=== PATIENT | female | born 1990 | race Caucasian/White ===

== ENCOUNTER 2016-08-26 10:34 | Emergency (ER) | payer OTHER ==
[~2016-08-26] VITALS: Ht 162.6 cm; Wt 65.9 kg
[~2016-08-26 10:34] MED LIST: DEPOPROVERA; VENL150C98 PO
[2016-08-26 10:39] VITALS: BP 133/96; PULSE 79; RESP 15; O2SAT 98
--- NOTE | 2016-08-26 11:03 | ED.REPORT ---
HPI-NVD Date of Service Aug 26, 2016 ED Provider: Olivia Guevara History of Present Illness: nausea diarrhea, vomiting off and on , fevers off and on. no primary care. ongoing for 4 weeks. given medications yesterday at [facility] with a bladder infection, denies s/s of such. taking depo. no coughing. feels weak tired.work at [employer], may lose job because of so many days missed, no blood in diarrhea, cyclic diarrhea, slight diarrhea today, took zofran today no relief from nausea trouble keeping food and liqueds down Nursing Notes Chief Complaint: FLU/Cold Symptoms Nursing Notes Reviewed: Yes Allergies: Coded Allergies: Sulfa (Sulfonamide Antibiotics) (Verified Allergy, Unknown, 07/12/14) Scheduled ([Depoprovera]) q 3 mos. Venlafaxine ER (Venlafaxine ER) 150 Mg Cap.er.24h 150 MG PO DAILY General Time Seen by MD: 11:01 Chief Complaint Nausea, Vomiting, Diarrhea, Other (crampiong abd pain) Hx Obtained From: Patient Onset Occurred: More than a week ago... (4 weeks) Symptom Duration: Intermittent Past Medical History Past Medical History Reports: Asthma Past Surgical History Reports: Inguinal hernia repair Smoking History Never Smoker Social History Alcohol Use: Denies alcohol use Drug Use: Denies drug use Occupation lives with friend and working at a [employer], taking lots of sports pictures 08/26/2016 Ambulatory Status Independent Review of Systems Basic Review of Systems Eyes: Vision NL, No discharge Respiratory: No shortness of breath, No cough, No wheeze Cardiovascular: No chest pain, No dyspnea on exertion, No orthopnea, No parox noct dyspnea, No palpitations : No dysuria, No frequency Musculoskeletal: No extremity swelling, No extremity pain, Full range of motion , Joints NL Hematologic: No bleeding, No bruising Endocrine: No cold intolerance, No heat intolerance, No weight gain, No weight loss Allergy / Immune: No allergy Psychiatric: Normal thought content Physical Exam Initial Vital Signs Vital Signs (First) Date Time Temp Pulse Resp B/P Pulse Ox O2 Delivery O2 Flow Rate FiO2 08/26/16 10:39 37.2 79 15 133/96 98 Room Air Initial VS: Reviewed, Vital signs normal Head / Eyes: Atraumatic, Normocephalic, PERRL ENT: Mucous membranes moist, Conjunctiva normal, No scleral icterus Neck: Supple, Non-tender, Full range of motion Respiratory: Breath sounds normal, Clear to auscultation, No respiratory distress Cardiovascular: Regular rate & rhythm, Heart sounds normal, Intact distal pulses Back: No CVA tenderness Lymphatic: No lymphadenopathy Extremities: Vascular intact, Neuro intact, No swelling, No tenderness Skin: Warm, Dry, No cyanosis Neurologic: Alert, Oriented, Nonfocal Psychiatric: Mood/affect normal, Behavior normal, Normal thought content General/Constitutional: Awake, Alert, No acute distress, Well appearing, Well developed, Well hydrated Abdomen: Atraumatic, Soft, Non-tender, McBurney's non-tender, No guarding, No rebound, BS normoactive ENT: Atraumatic, Airway patent, Mucous membranes moist, Pharynx NL, No peritonsillar abscess Respiratory / Chest: Atraumatic, Breath sounds NL, Breath sounds = bilat, No respiratory distress Cardiovascular: Heart rate NL, Regular rhythm, Heart sounds NL, No gallop Interpretation & Diagnostics Interpretation & Diagnostics: iver: Liver is normal in size and homogeneous in echotexture. Gallbladder: There are normal gallbladder Biliary ducts: Intrahepatic bile ducts are non-dilated. Extrahepatic bile duct caliber measures 2.5 mm. Normal is 6-7 mm or less in diameter, or 10 mm or less post-cholecystectomy. Pancreas: Visualized portions of the pancreas are sonographically normal. Spleen: Spleen is normal in size and homogeneous in echotexture. Kidneys: Kidneys are normal in size and echotexture. Right kidney measures 12.0 cm long; left kidney measures 10.3 cm long. No nephrolithiasis. No solid masses. Mild right pelviectasis. Aorta: Visualized aorta is normal in caliber at less than 3 cm. Iliacs: Proximal common iliac arteries are normal in caliber at less than 2.5 cm. IVC: Intrahepatic inferior vena cava is patent. Miscellaneous: No free abdominal fluid. IMPRESSION: 1. Mild pelviectasis in right kidney. No renal calculi. 2. Otherwise normal exam. Dictated by: Arnaud Martinez M.D. on 08/26/2016 at 13:58 Approved by: Arnaud Martinez M.D. on 08/26/2016 at 14:01 Lab Results Interpretation Result Diagram: 08/26/16 1135 08/26/16 1135 Test 08/26/16 11:14 08/26/16 11:35 08/26/16 14:15 Hold Urine Received (Received) White Blood Count 5.6th/mm3 (3.8-10.1) Red Blood Count 5.16mil/mm3 (3.90-5.20) Hemoglobin 15.4g/dL (12.0-15.6) Hematocrit 43.4% (35.0-46.0) Mean Corpuscular Volume 84.1fL (81-100) Mean Corpuscular Hemoglobin 29.8pg (27.0-35.0) Mean Corpuscular Hemoglobin Concent 35.5% (32.0-37.0) Red Cell Distribution Width 12.5% (12.3-15.4) Platelet Count 199bil/L (150-400) Neutrophils (%) (Auto) 47.1% (40-74) Lymphocytes (%) (Auto) 38.2% (14-46) Monocytes (%) (Auto) 7.9% (4-12) Eosinophils (%) (Auto) 5.9% (0-5) Basophils (%) (Auto) 0.7% (0-3) Sodium Level 138mEq/L (134-144) Potassium Level 3.7mEq/L (3.5-5.2) Chloride Level 102mEq/L (97-108) Carbon Dioxide Level 23mmol/L (18-29) Blood Urea Nitrogen 12mg/dL (6-20) Creatinine 0.55mg/dL (0.57-1.00) Estimat Glomerular Filtration Rate 193mL/min (>59) Glucose Level 91mg/dL (60-99) Calcium Level 9.6mg/dL (8.5-10.1) Total Bilirubin 1.7mg/dL (0.0-1.2) Aspartate Amino Transf (AST/SGOT) 11U/L (0-50) Alanine Aminotransferase (ALT/SGPT) 8U/L (0-32) Alkaline Phosphatase 47U/L (25-150) Total Protein 7.6g/dL (6.4-8.4) Albumin 4.6g/dL (3.4-5.0) Amylase Level 42U/L (28-100) Lipase 22U/L (13-60) Urine Color Yellow (YELLOW) Urine Appearance Clear (CLEAR,HAZY) Urine pH 7.0 (5.0-8.0) Urine Specific [place] 1.015 (1.003-1.035) Urine Protein Negativemg/dL (NEG,TRACE) Urine Glucose (UA) Negativemg/dL (NEGATIVE) Urine Ketones Negativemg/dL (NEGATIVE) Urine Occult Blood Negative (NEGATIVE) Urine Nitrite Negative (NEGATIVE) Urine Bilirubin Negative (NEGATIVE) Urine Urobilinogen Normalmg/dL (NORMAL) Urine Leukocyte Esterase Negative (NEGATIVE) Urine RBC 0-2/hpf (0-2) Urine WBC 0-5/hpf (0-5) Urine Epithelial Cells Few/hpf (NONE-MOD) Urine Crystals None seen (NONE SEEN) Urine Bacteria Few/hpf (NONE-FEW) Urine Hyaline Casts None/lpf (NONE) Urine Granular Casts None seen (NONE SEEN) Urine Waxy Casts None seen (NONE SEEN) Urine Red Blood Cell Casts None seen (NONE SEEN) Urine White Blood Cell Casts None seen (NONE SEEN) Urine Mucus Present (None Seen) Urine Trichomonas None seen (NONE SEEN) Urine Yeast None (NONE SEEN) Urinalysis Comment None Urine Culture Reflexed Not indicated X-Ray Abdominal Interpretation ECHNIQUE: One view of the abdomen acquired. COMPARISON: None. FINDINGS: Surgical changes and devices: None. Bowel: Bowel gas pattern is normal. Soft tissues: No suspicious abdominal calcifications. Visualized solid organ contours appear normal in size. Bones: No suspicious bony lesions. IMPRESSION: No acute process. Re-Eval/Medical Decision Med Decision/Clinical Course patient reporting decrease in nausea and pain has resolved. still with fatigue. patient unable to provide stool sample Discharge & Departure Impression: Primary Impression: Diarrhea Additional Impression: Nausea Disposition: Home Patient Instructions: Acute Nausea and Vomiting (ED), Chronic Diarrhea (ED), High Fiber Diet (ED) Additional Instructions: The labs are normal. The urine is normal. The ultrasound looks good. The x-ray is normal. The reglan did help with the nausea . A stool sample would be helpful to see why the diarrhea continues to be ongoing. Start a high fiber diet. You need to follow up in a week or so for a recheck. Please follow with primary care for a recheck. Referrals: Cedrick,Liane KENNEDY (PCP) EDSupervising Provider for APC: Robb Rock MD copies to: Liane Philip Sue ARNP Aug 26, 2016 11:02
[2016-08-26] MEDS ORDERED: 0.9% Sodium Chloride 1,000 ML IV ONE (11:20)
[2016-08-26] MEDS ORDERED: MetoCLOpramide 5 mg/mL 2 mL Inj IVPUSH ONE (11:20)
[2016-08-26 11:38] LABS: BASOPHILS % (AUTO) 0.7 % (0-3); EOSINOPHILS % (AUTO) 5.9 % (0-5); MONOCYTES % (AUTO) 7.9 % (4-12); Mean Corpuscular Hemoglobin 29.8 pg (27.0-35.0); Mean Corpuscular Volume 84.1 fL (81-100); NEUTROPHILS % (AUTO) 47.1 % (40-74); Platelet Count 199 bil/L (150-400)
--- NOTE | 2016-08-26 11:59 | DRSVH ---
PROCEDURE: X-RAY KUB ([id number]) INDICATIONS: abp pain TECHNIQUE: One view of the abdomen acquired. COMPARISON: None. FINDINGS: Surgical changes and devices: None. Bowel: Bowel gas pattern is normal. Soft tissues: No suspicious abdominal calcifications. Visualized solid organ contours appear normal in size. Bones: No suspicious bony lesions. IMPRESSION: No acute process. Dictated by: Carina Nair M.D. on 08/26/2016 at 11:57 Approved by: Carina Nair M.D. on 08/26/2016 at 11:57
--- NOTE | 2016-08-26 14:03 | DRSVH ---
PROCEDURE: US ABDOMEN ([id number]) INDICATIONS: Abdominal pain and nausea. TECHNIQUE: Real-time scanning was performed of the abdominal and retroperitoneal organs, with image documentatio n. COMPARISON: CT, ABD/PELVIS W/CON (PNL), 02/01/2010, 17:05. [facility], US, ABDOMEN SONO GRAM, 01/22/2010, 14:48. [facility], CT, KUB - CT ([facility]), 11/15/2012, 10:52. FINDINGS: Liver: Liver is normal in size and homogeneous in echotexture. Gallbladder: There are normal gallbladder Biliary ducts: Intrahepatic bile ducts are non-dilated. Extrahepatic bile duct caliber measures 2.5 mm. Normal is 6-7 mm or less in diameter, or 10 mm or less post-cholecystectomy. Pancreas: Visualized portions of the pancreas are sonographically normal. Spleen: Spleen is normal in size and homogeneous in echotexture. Kidneys: Kidneys are normal in size and echotexture. Right kidney measures 12.0 cm long; left kidne y measures 10.3 cm long. No nephrolithiasis. No solid masses. Mild right pelviectasis. Aorta: Visualized aorta is normal in caliber at less than 3 cm. Iliacs: Proximal common iliac arteries are normal in caliber at less than 2.5 cm. IVC: Intrahepatic inferior vena cava is patent. Miscellaneous: No free abdominal fluid. IMPRESSION: 1. Mild pelviectasis in right kidney. No renal calculi. 2. Otherwise normal exam. Dictated by: rAnaud Martinez M.D. on 08/26/2016 at 13:58 Approved by: Arnaud Martinez M.D. on 08/26/2016 at 14:01
[2016-08-26 14:32] LABS: APPEARANCE,URINE CLEAR (CLEAR,HAZY); COLOR,URINE YELLOW (YELLOW); OCCULT BLOOD,URINE NEGATIVE (NEGATIVE); UROBILINOGEN,URINE NORMAL (NORMAL)
== END 2016-08-26 14:13 | disposition home or self-care (01) ==
LOC: SED 10:34
DX: R19.7 Diarrhea, unspecified (principal); R11.2 Nausea with vomiting, unspecified; R50.9 Fever, unspecified; R53.1 Weakness; J45.909 Unspecified asthma, uncomplicated; Z88.2 Allergy status to sulfonamides
CPT/HCPCS: 36415; 74000; 76700; 80053; 81000; 81025; 82150; 83690; 85025; 96361; 96374; 96375; 99285; J2765; J7030

== ENCOUNTER 2017-02-19 16:56 | Emergency (ER) | payer OTHER ==
[~2017-02-19] VITALS: Ht 162.6 cm; Wt 68.2 kg
[2017-02-19 16:59] VITALS: BP 151/104; PULSE 85; RESP 16; O2SAT 100
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
[2017-02-19 18:47] LABS: BASOPHILS % (AUTO) 0.2 % (0-3); EOSINOPHILS % (AUTO) 5.9 % (0-5); MONOCYTES % (AUTO) 6.5 % (4-12); Mean Corpuscular Hemoglobin 30.1 pg (27.0-35.0); Mean Corpuscular Volume 83.9 fL (81-100); NEUTROPHILS % (AUTO) 58.2 % (40-74); Platelet Count 262 bil/L (150-400)
[2017-02-19] MEDS ORDERED: Promethazine Inj 25 MG in Dextrose 5%-Pha MIX 50 ML IV ONE (19:40)
[2017-02-19] MEDS ORDERED: 0.9% Sodium Chloride 1,000 ML IV ONE ×4 (19:40→22:05)
--- NOTE | 2017-02-19 20:25 | DRSVH ---
PROCEDURE: CT ABDOMEN AND PELVIS WITH CONTRAST ([id number]) INDICATIONS: R ABD pain TECHNIQUE: After the administration of intravenous contrast, 5 mm thick sections acquired from the diaphragm to the symphysis. 5 mm coronal and sagittal reformats were acquired. For radiation dose reduction, the following was used: automated exposure control, adjustment of mA and/or kV according to patient siz e. COMPARISON: [facility], CT, ABD/PELVIS W/CON ([facility] 02/01/2010, 17:05. [facility] CT ([facility]), 11/15/2012, 10:52. FINDINGS: Image quality: Excellent. ABDOMEN: Lung bases: Lung bases are clear. Heart size is normal. Solid organs: Liver and spleen are normal in size and enhancement. Gallbladder is within normal browne its. Biliary system is non dilated. Pancreas enhances normally. No adrenal nodules. Kidneys demon strate normal size and enhancement, without hydronephrosis. Peritoneum and bowel: Bowel loops demonstrate normal wall thickness and caliber. No free fluid or a ir. The appendix is normal. Nodes and vessels: No retroperitoneal or mesenteric adenopathy by size criteria. Aorta and inferior vena cava are normal in size. Miscellaneous: No ventral hernias. PELVIS: Genitourinary: Bladder wall thickness is normal. Miscellaneous: No inguinal hernias or adenopathy. Bones: No suspicious bony lesions. No vertebral body compression fractures. IMPRESSION: 1. No acute disease process. 2. The appendix is normal. 3. No free fluid or air. 4. No dilated loops of bowel. Dictated by: Maine Sanchez MD, PhD on 02/19/2017 at 20:20 Approved by: Maine Sanchez MD, PhD on 02/19/2017 at 20:24
[2017-02-19] MEDS ORDERED: HYDROmorphone 0.5 mg/0.5 mL iSecure Syringe IVPUSH PRN (21:20)
[2017-02-19] MEDS ORDERED: Ondansetron 2 mg/mL 2 mL Inj IVPUSH ONE (21:20)
[2017-02-19 21:54] VITALS: BP 121/100; PULSE 95; RESP 23; O2SAT 100
[2017-02-19] MEDS ORDERED: ProchlorPERazine 5 mg/mL 2 mL Inj IVPUSH ONE (23:00)
[2017-02-20] MEDS ORDERED: 0.9% Sodium Chloride 1,000 ML IV ONE (00:20)
[2017-02-20 01:44] VITALS: BP 128/92; PULSE 90; RESP 19; O2SAT 99
[2017-02-20] MEDS ORDERED: ONDA8TAB10 PO (01:45)
[2017-02-20] MEDS ORDERED: _Ondansetron ODT 4 mg Tablet PO PRN (01:45)
== END 2017-02-20 02:03 | disposition home or self-care (01) ==
LOC: SED 16:56
DX: R10.84 Generalized abdominal pain (principal); R11.10 Vomiting, unspecified; E86.0 Dehydration; Z88.2 Allergy status to sulfonamides
CPT/HCPCS: 36415; 74177; 80053; 81025; 83690; 83735; 85025; 93005; 96361; 96374; 96375; 96376; 99285; J0780; J1200; J1885; J2060; J2405; J2550; J7030; Q9967